=== PATIENT | female | born 1955 | race Caucasian/White ===

== ENCOUNTER 2023-07-14 18:17 | Emergency (ER) | payer MEDICARE, SELFPAY ==
--- NOTE | ~2023-07-14 | CT_ITS ---
EXAMINATION: CT BRAIN W/O DATE: 07/14/2023 20:12 INDICATION: Vertigo TECHNIQUE: Computed tomography (CT) of the head was performed without intravenous contrast. The dose- length product was 605.33 mGy-cm. Automated exposure control and iterative reconstruction technique w ere employed. COMPARISON: No prior studies for comparison. FINDINGS: Normal brain parenchymal volume for age. Normal moore-white differentiation. No acute intrac ranial hemorrhage, infarction, mass or mass effect. There are scattered mild periventricular and subcortical white matter changes, most likely related to small vessel ischemic disease (microangiopathy). No ventriculomegaly or midline shift. Midline sagittal images demonstrate a normal corpus callosum, c raniovertebral junction and sella turcica. Basilar cisterns are patent. Paranasal sinuses and mastoids are pneumatized. No depressed skull fractures. IMPRESSION: 1. No acute intracranial abnormality. Reviewed, dictated and finalized at location A.
--- NOTE | ~2023-07-14 | XR_ITS ---
EXAMINATION: XR chest 1V portable 07/14/2023 19:39 INDICATION: Dizziness PROCEDURE: AP portable chest COMPARISON: No prior studies for comparison. FINDINGS: The lungs are clear. The cardiomediastinal silhouette is within normal limits. There are no pleural effusions. There is no pneumothorax suspected. IMPRESSION: 1: NO ACUTE CARDIOPULMONARY DISEASE. Reviewed, dictated and finalized at location A.
[2023-07-14 18:25] VITALS: BP 195/81; PULSE 83; RESP 18; TEMP 36.6; O2SAT 100
--- NOTE | 2023-07-14 18:41 | ECG_ITS ---
Measurements Intervals Duncan Rate: 74 P: 41 MO: 160 QRS: -7 QRSD: 97 T: 32 QT: 404 QTc: 450 Interpretive Statements SINUS RHYTHM DELAYED PRECORDIAL R/S TRANSITION BORDERLINE ST-T WAVE ABNORMALITY- ANT/HIGH LAT LEADS BASELINE ARTIFACT- II, III, AVR, AVF, V4-V6 BORDERLINE ECG NO PREVIOUS ECG AVAILABLE FOR COMPARISON Electronically Signed On 07-14-2023 19:51:20 CDT by Elder King D.O.
[2023-07-14 19:18] LABS: Basophils Percent Auto 0.3 % (0.2-1.2); Eosinophils Absolute Auto 0.1 K/mm3 (0-0.3); Eosinophils Percent Auto 0.7 % (0-4.4); Hematocrit 34.4 % (37.0-47.0); Hemoglobin 11.3 g/dL (12.0-15.0); Immature Granulocyte Absolute 0.04 K/mm3 (0.00-0.031); Immature Granulocyte Percent A 0.4 % (0-0.5); Lymphocytes Absolute Auto 2.73 K/mm3 (0.9-3.2); Lymphocytes Percent Auto 28.6 % (18.3-44.2); Mean Corpuscular HGB Conc 32.8 g/dl (32-36); Mean Corpuscular Hemoglobin 32.2 pg (26-34); Mean Platelet Volume 9.7 fl (7.4-10.4); Monocytes Absolute Auto 0.7 K/mm3 (0.1-0.6); Monocytes Percent Auto 7.6 % (2.6-8.5); Neutrophils Percent Auto 62.4 % (45.5-73.1); Platelet Count Result 407 k/mm3 (150-375); Red Blood Count 3.51 M/mm3 (4.2-5.4); Red Cell Distribution Width 12.9 % (11.5-14.5); White Blood Count 9.6 K/mm3 (4.5-10.0)
[2023-07-14 19:28] LABS: Alanine Aminotransferase 19 U/L (6-35); Albumin Level 4.5 g/dL (3.5-5.1); Alkaline Phosphatase 91 U/L (38-126); Anion Gap 10 mmol/L (8-16); Aspartate Amino Transferase 38 U/L (14-36); Bilirubin,Total 0.5 mg/dL (0.2-1.3); Blood Urea Nitrogen 20 mg/dL (7-17); Calcium 9.2 mg/dL (8.4-10.2); Carbon Dioxide 22 mmol/L (22-30); Chloride 97 mmol/L (98-107); Estimated CRCL calculation 56 ml/min; Estimated Glomerular Filt Rate > 60; Glucose 110 mg/dL (65-110); Potassium 3.2 mmol/L (3.4-5.0); Sodium 129 mmol/L (137-145)
--- NOTE | 2023-07-14 19:48 | ED.RECABL ---
HPI - Recheck/Abnormal Lab/Rx General Chief Complaint: Recheck/Abnormal Lab/Rx Stated Complaint: high blood pressure Time Seen by Provider: 07/14/23 18:38 Source: patient Mode of arrival: ambulatory Limitations: no limitations History of Present Illness HPI narrative: This is a 68-year-old female with PMH of HTN, RA who presents to the ED with chief complaint of not feeling well today. Reports that she was working outside in the garden and doing things around the house. She states that she started to feel a little ?off and went inside. She was having a little bit of lightheadedness and a little bit of dizziness. She did not feel like she was going to pass out but did feel like she was having some vertigo-like symptoms. Denies any difficulty with ambulation. States that her blood pressure was very high at home, up to 174/90. She is concerned that the blood pressure is related to what is going on today. She states that she had some bilateral upper extremity tingling that has since resolved. Denies chest pain, shortness of breath, weakness, vision change, palpitations, leg swelling. Denies syncope or fall. Related Data Allergies Allergy/AdvReac Type Severity Reaction Status Date / Time No Known Allergies Allergy Verified 07/14/23 18:18 Review of Systems Review of Systems: All systems as dictated in HPI Exam Narrative: GENERAL: Well-appearing, well-nourished, and in no acute distress. HEAD: Normocephalic, atraumatic. EYES: PERRLA and EOMI. ENT: Nares clear, no rhinorrhea or epistaxis. Mucous membranes moist. Oropharynx without tonsillar hypertrophy exudate or other lesions. NECK: Supple. No adenopathy or masses. CHEST: No respiratory distress. Clear to auscultation. No wheezes rales or rhonchi HEART: Regular rate and rhythm. No murmur heard. Normal peripheral pulses. ABDOMEN: Soft, nontender, nondistended, normal active bowel sounds. MSK: Normal range of motion. No edema. SKIN: Warm, dry, no rash. NEURO: Alert and oriented x4. No focal deficits. Cranial nerves 2-12 intact. Negative pronator drift. Coordination intact. No nystagmus. PSYCH: Normal mood and affect. Course Vital Signs Vital signs: Vital Signs Temperature 97.8 F 07/14/23 18:25 Pulse Rate 83 03/13/24 18:25 Respiratory Rate 18 07/14/23 18:25 Blood Pressure 195/81 H 07/14/23 18:25 Pulse Oximetry 100 07/14/23 18:25 Oxygen Delivery Room Air 07/14/23 18:25 Temperature 97.8 F 07/14/23 18:25 Pulse Rate 60 07/14/23 22:10 Respiratory Rate 15 07/14/23 22:10 Blood Pressure 140/70 07/14/23 22:10 Pulse Oximetry 96 07/14/23 22:10 Oxygen Delivery Room Air 07/14/23 18:25 MDM - Recheck/Abnormal Lab/Rx MDM Narrative Medical decision making narrative: This is a 68-year-old female who presents to the ED with chief complaint of not feeling well and high blood pressure. Vitals show initially elevated blood pressure but otherwise normal. Exam is benign. No focal neurologic deficits. She is currently asymptomatic. EKG shows normal sinus rhythm. Lab work shows slight anemia with hemoglobin of 0.3 but otherwise CBC is unremarkable. CMP remarkable for slightly low sodium of 129 and hypokalemia 3 2. BUN slightly elevated to 20. LFTs normal. Urinalysis shows continued evidence of slight dehydration with 2+ ketones but otherwise is unremarkable. Head CT is without acute findings. Chest x-ray normal. Patient was given a L of fluids and meclizine here. She feels completely asymptomatic on re-evaluation. Symptoms and presentation consistent with minor dehydration. She feels comfortable going home and following up with her primary. She will be discharged in stable condition Lab Data 07/14/23 19:01 07/14/23 19:01 Labs: Lab Results 07/14/23 07/14/23 Range/Units 19:01 20:23 WBC 9.6 (4.5-10.0) K/mm3 RBC 3.51 L (4.2-5.4) M/mm3 Hgb 11.3 L (12.0-15.0) g/dL Hct 34.4 L
[2023-07-14] MEDS: POTASSIUM CHLORIDE 20 MEQ PACKET (FOR LIQUID) 40 MEQ PO (19:53)
[2023-07-14] MEDS: MECLIZINE HCL 25 MG TABLET PO (19:53)
[2023-07-14] MEDS: SODIUM CHLORIDE 0.9% IV 1,000 ML 999 ML IV CONT (19:54)
[2023-07-14 19:56] VITALS: BP 143/71; PULSE 65; RESP 15; O2SAT 100
[2023-07-14 20:30] VITALS: BP 157/74; BP 158/79; BP 176/77; PULSE 68; PULSE 71; PULSE 74
[2023-07-14 20:31] LABS: Appearance Urine Clear (Clear); Bilirubin Urine Negative (Negative); Blood Urine Negative (Negative); Color Urine Yellow (Yellow); Glucose Urine UA Negative (Negative); Ketones Urine 2+ mg/dL (Negative); Leukocyte Esterase Ur Negative LEU/UL (Negative); Nitrate Urine Negative (Negative); Protein Urine Negative (Negative); Specific Grav Ur 1.014 (1.001-1.035); Urobilinogen Urine 0.2 mg/dL (<2.0)
[2023-07-14 20:34] LABS: Add Urine Microscopic? NO
[2023-07-14 22:10] VITALS: BP 140/70; PULSE 60; RESP 15; O2SAT 96
== END 2023-07-14 22:53 | disposition home or self-care (01) ==
PROVIDERS: Emergency Provider Physician Assistant
DX: E86.0 Dehydration (principal)
CPT/HCPCS: 36415; 70450; 71045; 80053; 85025; 93005; 96360; 99284; A9270; J7030